=== PATIENT | male | born 2000 | race African-American/Black ===

== ENCOUNTER 2020-09-26 08:37 | Emergency (ER) | payer SELFPAY ==
[2020-09-26] MEDS ORDERED: Acetaminophen 325 MG TAB ONE (09:28)
[2020-09-26] MEDS ORDERED: Dexamethasone 4 MG TAB ONE (10:01)
== END 2020-09-26 10:07 | disposition home or self-care (01) ==
LOC: CSHERS 08:37
DX: J20.8 Acute bronchitis due to other specified organisms (principal); J45.909 Unspecified asthma, uncomplicated; F17.290 Nicotine dependence, other tobacco product, uncomplicated
CPT/HCPCS: 71046; J8540

== ENCOUNTER 2021-03-03 08:04 | Emergency (ER) | payer SELFPAY ==
[2021-03-03] MEDS ORDERED: Acetaminophen 500 MG TAB ONE (08:35)
[2021-03-03 08:46] LABS: Bilirubin Neg (Negative); Blood, Urine 25 (Negative); Clarity Clear (Clear); Glucose, Urine (Dipstick) Normal (Negative); Ketone, Urine 5 mg/dL (Negative); Leukocyte 25 (Negative); Nitrite Negative (Negative); Protein, Urine (Dipstick) 30 mg/dl (Neg-Trace); Specific Gravity, Urine 1.025 (1.002-1.036)
[2021-03-03 08:57] LABS: RBC/HPF 0-3 HPF (0-3); Squamous Epithelial 0-3 HPF (0-3)
[2021-03-03 08:58] LABS: Bacteria/HPF Rare-Few HPF (None Seen); Mucous/LPF Few LPF (<2+)
[2021-03-06 20:54] LABS: Chlam.trachomatis by PCR,Urine DETECTED (NotDetected)
== END 2021-03-03 09:47 | disposition home or self-care (01) ==
LOC: CSHERS 08:04
DX: N50.812 Left testicular pain (principal); N50.811 Right testicular pain; F17.290 Nicotine dependence, other tobacco product, uncomplicated
CPT/HCPCS: 76870; 81003; 81015; 87086; 87491; 87591; 93976

== ENCOUNTER 2021-04-23 03:43 | Emergency (ER) | payer SELFPAY | END 2021-04-23 04:26 | disposition home or self-care (01) | LOC: CSHERS 03:43 | DX: J06.9 Acute upper respiratory infection, unspecified (principal); F17.290 Nicotine dependence, other tobacco product, uncomplicated; Z79.899 Other long term (current) drug therapy | CPT/HCPCS: 99283 ==

== ENCOUNTER 2021-10-10 23:55 | Emergency (ER) | payer SELFPAY ==
[2021-10-11] MEDS ORDERED: Acetaminophen 500 MG TAB ONE (00:08)
== END 2021-10-11 00:31 | disposition home or self-care (01) ==
LOC: CSHERS 23:55
DX: R51.9 Headache, unspecified (principal); F17.290 Nicotine dependence, other tobacco product, uncomplicated
CPT/HCPCS: 99283

== ENCOUNTER 2021-12-12 09:00 | Emergency (ER) | payer BC, SELFPAY ==
[2021-12-12] MEDS ORDERED: Dexamethasone 10 MG/ML VIAL ONE (09:37)
[2021-12-12] MEDS ORDERED: Acetaminophen 500 MG TAB ONE (09:37)
[2021-12-12] MEDS ORDERED: Ibuprofen 200 MG TAB ONE (09:37)
== END 2021-12-12 11:36 | disposition home or self-care (01) ==
LOC: CSHERS 09:00
DX: M54.42 Lumbago with sciatica, left side (principal)
CPT/HCPCS: J1100